=== PATIENT | female | born 1960 | race Caucasian/White ===

== ENCOUNTER 2022-11-08 07:43 | Outpatient (OUT) | payer OTHER, SELFPAY ==
--- NOTE | 2022-11-08 07:49 | XR_ITS ---
[address] [address] Patient Name: GEN CANAS MRN: [id number] date: 1960 Sex: F Assigned Patient Location: [facility] Current Patient Location: [facility] Accession/Order Number: [id number] Exam Date: 11/08/2022 07:55 Report Date: 11/08/2022 08:35 At the request of: JARRELL BALDERRAMA Procedure: XR DEXA axial skeleton EXAMINATION: XR DEXA axial skeleton, 11/08/2022 7:55 AM EDT HISTORY: Age Related Osteoporosis M81.0 COMPARISON: 2020, 2018, 2016, 2014 TECHNIQUE: Dual-energy X-ray absorptiometry (DEXA) bone density study performed for the axial skeleton. HISTORY: Age Related Osteoporosis M81.0 FINDINGS: Bone mineral density AP spine L1-L4 measures 0.881 g/sq cm. T score -2.5. WHO classification: Osteoporosis Bone mineral density of the total mean femurs measures 0.742 g/sq cm. Young adult T score -2.1. WHO classification: Osteopenia XR/XR DEXA axial skeleton IMPRESSION: Osteoporosis. High fracture risk Electronically authenticated by: CHAPO MORLEY Date: 11/08/2022 08:35
== END 2022-11-08 07:44 | disposition home or self-care (01) ==
LOC: RAD 07:43
PROVIDERS: PCP Family Medicine; Visit Provider Family Medicine
DX: M81.0 Age-related osteoporosis without current pathological fracture (principal)
CPT/HCPCS: 77080

== ENCOUNTER 2024-11-09 08:34 | Outpatient (OUT) | payer MEDICARE, OTHER, SELFPAY | END 2024-11-09 08:35 | disposition home or self-care (01) | LOC: RAD 08:34 | PROVIDERS: PCP Family Medicine; Visit Provider Specialist | DX: M85.88 Other specified disorders of bone density and structure, other site (principal); Z13.820 Encounter for screening for osteoporosis; Z78.0 Asymptomatic menopausal state; M81.0 Age-related osteoporosis without current pathological fracture | CPT/HCPCS: 77080 ==